=== PATIENT | female | born 1995 | race Caucasian/White ===

== ENCOUNTER 2019-03-19 00:12 | Emergency (ER) | payer MEDICAID ==
[2019-03-19 01:31] LABS: #Eosinphils 0.1 thou/uL (0.0-0.7); #Lymphocytes 2.8 thou/uL (1.20-3.40); #Monocytes 0.6 thou/uL (0.11-0.59); #Neutrophils 5.7 thou/uL (1.40-6.50); %Basophils 0.4 % (0.0-1.0); %Eosinophils 1.2 % (0.0-10.0); %Monocytes 6.6 % (0.0-10.0); %Neutrophils 61.8 % (42.0-75.0); Hemoglobin 13.6 g/dL (12.0-16.0); Mean Corpuscular HGB CONC 33.9 g/dL (32.0-36.0); Mean Corpuscular Hemoglobin 32.9 pg (27.0-31.0); Mean Platelet Volume 7.3 fL (7.4-10.4); Platelet Count 350 thou/uL (130-400); RBC Distribution Width 11.3 % (11.5-14.5); Red Blood Cell (RBC) Count 4.13 mill/uL (4.20-5.40); White Blood Cell (WBC) Count 9.3 thou/uL (4.8-10.8)
--- NOTE | 2019-03-19 07:41 | ULT ---
PRELIMINARY REPORT/[facility]/AFTER HOURS PROCEDURE EXAM: US First Trimester, Transabdominal and US , Transvaginal US Duplex Artery and Vein of the Abdominal and/or Reproductive Organs. Complete Ovaries EXAM DATE/TIME: 03/19/2019 1:42 AM CLINICAL HISTORY: 23 years old, female; Lmp or gestational age (in weeks): 5w1d; Antepartum complications; co mplicated by abdominal or pelvic pain; Lower; First trimester; ; Patient HX: Vaginal spotting earlier today, then heavier vaginal bleeding, pelvic cramping pain, nausea TECHNIQUE: Imaging protocol: Real-time transabdominal obstetrical ultrasound of the maternal pelvis and a first trimester , less than 14 weeks 0 days, with image documentation. Transvaginal imaging was used for better evaluation of the fetus and adnexa. Real-time duplex ultrasound scan of the arterial and venous flow with color Doppler flow and spectral waveform analysis with image documentat ion. Complete duplex exam focused on the ovaries. Duplex exam was added to evaluate for torsion and other vascular conditions. COMPARISON: No relevant prior studies available. FINDINGS: Transabdominal ultrasound showed possible intrauterine gestational sac. Transvaginal ultrasound was p erformed for evaluation of pole. Duplex ultrasound scan with color Doppler flow and spectral waveform analysis was also performed for evaluation of pelvic and ovarian blood flow and torsion. Gestation: There is an intrauterine gestational sac (MSD: 0.43cm-5w1d) with yolk sac. No pole seen yet. Placenta/amniotic fluid: Cannot be adequately evaluated due to the early gestational age. Uterus/cervix: No acute findings. No myometrial mass. Right adnexa: No acute findings. No mass. Normal duplex of the ovary. No evidence of torsion. Left adnexa: No acute findings. No mass. Normal duplex of the ovary. No evidence of torsion. Free fluid: No free fluid. IMPRESSION: There is an intrauterine gestational sac with yolk sac, although no pole seen yet; recommend followup with beta-hCG and ultrasound. Thank you for allowing us to participate in the care of your patient. Dictated and Authenticated by: Joey Phelan MD 03/19/2019 2:55 AM Central Time ([place] & [place]) FINAL REPORT TRANSABDOMINAL AND TRANSVAGINAL PELVIC ULTRASOUND WITH GRAYSCALE AND COLORFLOW AND SPECTRAL DOPPLER I MAGING: I agree with the report given by Dr. Joey Phelan of [facility]. CODE QA Transcribed Date/Time: 03/19/2019 8:20 AM
== END 2019-03-19 03:29 | disposition home or self-care (01) ==
LOC: ERS 00:12
DX: O20.9 Hemorrhage in early pregnancy, unspecified (principal); O99.341 Other mental disorders complicating pregnancy, first trimester; F41.9 Anxiety disorder, unspecified; Z3A.01 Less than 8 weeks gestation of pregnancy
CPT/HCPCS: 36415; 76856; 84702; 85025; 86900; 86901

== ENCOUNTER 2019-03-20 00:33 | Emergency (ER) | payer MEDICAID ==
[2019-03-20 01:12] LABS: #Basophils 0.1 thou/uL (0.0-0.2); #Eosinphils 0.1 thou/uL (0.0-0.7); #Lymphocytes 2.8 thou/uL (1.20-3.40); #Monocytes 0.6 thou/uL (0.11-0.59); #Neutrophils 4.3 thou/uL (1.40-6.50); %Basophils 1.3 % (0.0-1.0); %Eosinophils 1.6 % (0.0-10.0); %Lymphocytes 35.6 % (21.0-51.0); %Monocytes 7.2 % (0.0-10.0); %Neutrophils 54.4 % (42.0-75.0); Hemoglobin 13.4 g/dL (12.0-16.0); Mean Corpuscular HGB CONC 33.8 g/dL (32.0-36.0); Mean Corpuscular Volume 97.6 fL (78.0-98.0); Platelet Count 325 thou/uL (130-400); RBC Distribution Width 11.2 % (11.5-14.5); Red Blood Cell (RBC) Count 4.08 mill/uL (4.20-5.40); White Blood Cell (WBC) Count 7.9 thou/uL (4.8-10.8)
[2019-03-20 01:26] LABS: Bacteria/HPF None Seen HPF (None Seen); Bilirubin Negative (Negative); Blood, Urine 2+ (Negative); Clarity Clear (Clear); Glucose, Urine (Dipstick) Normal (Negative); Leukocyte Negative Leu/uL (Negative); Nitrite Negative (Negative); Protein, Urine (Dipstick) Negative (Neg-Trace); Squamous Epithelial 0-3 HPF (0-3); Urobilinogen Normal mg/dL (Less than 2); WBC/HPF 0-3 HPF (0-3)
[2019-03-20] MEDS ORDERED: Acetaminophen 500 MG TAB ONE (01:28)
[2019-03-20 01:43] LABS: HCG, Total Quant 1823.21 mIU/mL (See Ranges)
[2019-03-20 01:46] LABS: Thyroid Stimulating Hormone 1.6095 uIU/mL (0.35-4.94)
[2019-03-21 00:43] LABS: Chlamydia by PCR Not Detected (NotDetected); GC by PCR Not Detected (NotDetected)
== END 2019-03-20 02:09 | disposition home or self-care (01) ==
LOC: ERS 00:33
DX: O20.9 Hemorrhage in early pregnancy, unspecified (principal); Z3A.01 Less than 8 weeks gestation of pregnancy
CPT/HCPCS: 36415; 81003; 81015; 84443; 84702; 85025; 87480; 87491; 87510; 87591; 87660

== ENCOUNTER 2019-03-20 14:50 | Emergency (ER) | payer MEDICAID ==
[2019-03-20 15:32] LABS: #Basophils 0.1 thou/uL (0.0-0.2); #Eosinphils 0.1 thou/uL (0.0-0.7); #Lymphocytes 1.7 thou/uL (1.20-3.40); #Monocytes 0.5 thou/uL (0.11-0.59); #Neutrophils 5.4 thou/uL (1.40-6.50); %Basophils 0.8 % (0.0-1.0); %Lymphocytes 22.5 % (21.0-51.0); %Monocytes 6.1 % (0.0-10.0); %Neutrophils 69.5 % (42.0-75.0); Hemoglobin 13.5 g/dL (12.0-16.0); Mean Corpuscular HGB CONC 34.3 g/dL (32.0-36.0); Mean Corpuscular Hemoglobin 33.3 pg (27.0-31.0); Mean Corpuscular Volume 97.1 fL (78.0-98.0); Platelet Count 313 thou/uL (130-400); Red Blood Cell (RBC) Count 4.04 mill/uL (4.20-5.40); White Blood Cell (WBC) Count 7.7 thou/uL (4.8-10.8)
--- NOTE | 2019-03-20 17:48 | ULT ---
Ultrasound pelvis Doppler duplex: DATE: 03/20/2019 HISTORY: 23-year-old female with pelvic pain. Follow-up missed . Interval decrease in beta hCG. COMPARISON: 03/19/2019 FINDINGS: Previously demonstrated intrauterine gestational sac at the fundus is no longer visualized. A transva ginal ultrasound was not performed. Endometrial stripe is 0.5 cm. Bilateral ovaries are normal in size and have blood flow demonstrated by Doppler. No significant free fluid in the cul-de-sac. IMPRESSION: Intrauterine gestational sac no longer visualized. Status post spontaneous .
== END 2019-03-20 18:56 | disposition home or self-care (01) ==
LOC: ERS 14:50
DX: O03.9 Complete or unspecified spontaneous abortion without complication (principal); O86.13 Vaginitis following delivery; B96.89 Other specified bacterial agents as the cause of diseases classified elsewhere; F41.9 Anxiety disorder, unspecified
CPT/HCPCS: 36415; 76856; 81003; 81015; 84443; 84702; 85025; 87480; 87491; 87510; 87591; 87660; 99284

== ENCOUNTER 2019-08-03 12:19 | Emergency (ER) | payer MEDICAID, OTHER ==
[2019-08-03] MEDS ORDERED: Acetaminophen 500 MG TAB ONE (12:33)
== END 2019-08-03 14:26 | disposition home or self-care (01) ==
LOC: ERS 12:19
DX: O99.511 Diseases of the respiratory system complicating pregnancy, first trimester (principal); J10.1 Influenza due to other identified influenza virus with other respiratory manifestations; O99.341 Other mental disorders complicating pregnancy, first trimester; F41.9 Anxiety disorder, unspecified; Z3A.01 Less than 8 weeks gestation of pregnancy
CPT/HCPCS: 36415; 84702; 87804; 96360

== ENCOUNTER 2019-09-02 09:25 | Emergency (ER) | payer OTHER ==
[2019-09-02 10:32] LABS: #Basophils 0.1 thou/uL (0.0-0.2); #Eosinphils 0.4 thou/uL (0.0-0.7); #Lymphocytes 1.8 thou/uL (1.20-3.40); #Monocytes 0.5 thou/uL (0.11-0.59); #Neutrophils 5.4 thou/uL (1.40-6.50); %Basophils 1.4 % (0.0-1.0); %Eosinophils 4.7 % (0.0-10.0); %Lymphocytes 22.3 % (21.0-51.0); %Monocytes 6.2 % (0.0-10.0); %Neutrophils 65.4 % (42.0-75.0); Hemoglobin 12.7 g/dL (12.0-16.0); Mean Corpuscular HGB CONC 32.8 g/dL (32.0-36.0); Mean Corpuscular Volume 97.5 fL (78.0-98.0); Mean Platelet Volume 7.2 fL (7.4-10.4); Platelet Count 284 thou/uL (130-400); RBC Distribution Width 11.5 % (11.5-14.5); Red Blood Cell (RBC) Count 3.99 mill/uL (4.20-5.40); White Blood Cell (WBC) Count 8.2 thou/uL (4.8-10.8)
--- NOTE | 2019-09-02 11:31 | ULT ---
Exam: Transabdominal and endovaginal pelvic ultrasound HISTORY: patient. Pain. COMPARISON: None TECHNIQUE: Transabdominal and endovaginal imaging of the pelvis is performed. Ovaries are interrogate d with grayscale, color flow, Doppler imaging and spectral wave form analysis FINDINGS: Uterus: No myometrial masses. Uterus measurin.6 x 5.2 x 7.5 cm. Endometrium: There is a gestational sac, yolk sac and pole. [place]-rump length is 1.92 cm corres ponding to gestational age of 8 weeks 3 days. heart tones: 171 bpm Small subchorionic hemorrhage.. Free fluid: None Right ovary: Normal echotexture Right ovary measurement: 2.1 x 3.0 x 2.3 cm Left ovary: Normal echotexture. Left ovary measurements: 2.0 x 1.4 x 2.1 cm. Limited evaluation left adnexa due to bowel loops Ovarian Doppler: There is vascular flow to the left and right ovary. IMPRESSION: Single intrauterine gestation with heart tones. Gestational age by crown-rump length is 8 weeks 3 days. Transcribed Date/Time: 09/02/2019 12:04 PM
[2019-09-02 11:40] LABS: Bilirubin Negative (Negative); Blood, Urine Negative (Negative); Clarity Turbid (Clear); Glucose, Urine (Dipstick) Normal (Negative); Leukocyte 500 Leu/uL (Negative); Mucous/LPF Rare LPF (<2+); Nitrite Negative (Negative); Protein, Urine (Dipstick) 20 mg/dL (Neg-Trace); Urobilinogen Normal mg/dL (Less than 2)
[2019-09-02 11:49] LABS: RBC/HPF 0-3 HPF (0-3)
[2019-09-02 11:50] LABS: Bacteria/HPF 1+ HPF (None Seen)
== END 2019-09-02 11:59 | disposition home or self-care (01) ==
LOC: ERS 09:25
DX: O99.89 Other specified diseases and conditions complicating pregnancy, childbirth and the puerperium (principal); R10.2 Pelvic and perineal pain; O99.341 Other mental disorders complicating pregnancy, first trimester; F41.9 Anxiety disorder, unspecified; Z3A.08 8 weeks gestation of pregnancy
CPT/HCPCS: 36415; 76856; 81003; 81015; 84702; 85025; 87086

== ENCOUNTER 2019-10-04 05:54 | Emergency (ER) | payer MEDICAID, OTHER | END 2019-10-04 06:14 | disposition home or self-care (01) | LOC: ERS 05:54 | DX: O99.89 Other specified diseases and conditions complicating pregnancy, childbirth and the puerperium (principal); H66.92 Otitis media, unspecified, left ear; O99.342 Other mental disorders complicating pregnancy, second trimester; F41.9 Anxiety disorder, unspecified; Z3A.15 15 weeks gestation of pregnancy | CPT/HCPCS: 99283 ==

== ENCOUNTER 2020-02-07 15:02 | Day surgery (SDC) | payer OTHER ==
[2020-02-07 15:32] VITALS: BMI 32.6
[2020-02-07] MEDS ORDERED: hydrALAZINE 20 MG/ML VIAL SLOW IVP PRN (16:11)
--- NOTE | 2020-02-07 16:17 | PDOC.LDHP ---
Labor and Delivery H&P Chief complaint: other (vaginal spotting with low back pain and cramping.) HPI: 24 y/o @ 30.6 wks presents to L&D with X2 days low abd cramping, vag spotting and vaginal pain. Pt states she started to have some spotting with mucus vag d/c about dime size today before arrival. Pt denies any dysuria, blood in urine, frequency or hesitation. c/o nausea, with one episode of vomiting X2 days ago that did not persist. denies fever/chills. Denies LOF. Reports good movements. admits to few contractions that are random. c/o HARP that started 3 days ago that went away when she hydrated spontaneously. Pt is concerned she has BV, as this is how she presented last year with BV. Denies sexual intercourse recently, last 1.5 months ago. PCP: Dr. Dahl Current gestational age (weeks): 30 (6 days ) Grav: 3 Para: 0 OB History Details: #1: spon ab @ 5.5 weeks #2: spon ab @ 4 weeks Current complications: none Past Medical History: no known medical problems Current medications: pre-loida vitamins Previous surgical history: none Allergies/Adverse Reactions: Allergies Allergy/AdvReac Type Severity Reaction Status Date / Time No Known Allergies Allergy Verified 02/07/20 15:32 Social history: none (denies etoh, tobacco or drugs) - Physical Exam Vital signs reviewed and normal: yes General: NAD Heart: RRR Lungs: CTAB Abdomen: gravid Extremeties: no edema FHT: variability present (135 fht's, mod variability, with accels present) Petronila contractions every: non on TOCO - Vaginal Exam cm dilated: 0 Effacement: 50% - Plan Plan: observation in L&D -: 24 y/o @ 30.6 weeks presents to L&D for low back pain with vag spotting , discharge and pain. 1. sIUP @ 30.6 weeks - no ctx on toco, FHT 135 with mod lillian and accels present. - no concern for labor as no ctx on toco and SVE by Dr. Riley: closed/ 50%/posterior 2. vaginal spotting, d/c with vaginal pain - spec exam: cervicitis present with strawberry appearing cervix. Thick yellow tinged d/c. - VP3, Gc/C collected 3. Cervicitis - DDX: BV vs trich - VP3 and GC/C collected - will treat pending swab results Dispo: stable, will observe in L&D and await results. PO hydration. Care plan discussed with Dr. Riley, who is in agreement with above stated plan. Addendum - Attending - Attending Attestation Date/Time: 02/07/202103 I personally evaluated the patient and discussed the management with Dr. Luz. I agree with the History, Examination, Assessment and Plan documented above.
--- NOTE | 2020-02-07 18:10 | PDOC.BPN ---
<Mounika Luz - Last Filed: 02/07/20 18:05> - Brief Progress Note VP3 neg GC/C pending no contractions on toco, and FHT 135 baseline with reassuring strip. SVE by Dr. Riley: closed/50%/posterior Pt d/c home with modified bed-rest for the rest of the weekend and pelvic rest recommended for the entirety of . Pt understands recs. return precaution given. f/u with Dr. Dahl for care. care plan discussed with Dr. Riley who is in agreement with above states plan. <Bran Riley - Last Filed: 02/07/20 18:18> Addendum - Attending - Attending Attestation Date/Time: 02/07/201814 I personally evaluated the patient and discussed the management with Dr. Luz. 30 + week IUP with spotting and occasional cramping. SSE c/w ectropion. Vaginal panel negative. GC, chlamydia pending. SVE closed/50% /post, npo blood seen. NO UCs noted on toco. Home with precautions, has appt. with Dr. Dahl this week. I agree with the History, Examination, Assessment and Plan documented above.
[2020-02-08 17:30] LABS: Chlamydia by PCR Not Detected (NotDetected); GC by PCR Not Detected (NotDetected)
== END 2020-02-07 18:15 | disposition home or self-care (01) ==
LOC: L&D/OP 15:02
PROVIDERS: ATTEND Obstetrics & Gynecology
DX: O26.853 Spotting complicating pregnancy, third trimester (principal); O23.519 Infections of cervix in pregnancy, unspecified trimester; B96.89 Other specified bacterial agents as the cause of diseases classified elsewhere; O99.89 Other specified diseases and conditions complicating pregnancy, childbirth and the puerperium; M54.5 Low back pain; R10.2 Pelvic and perineal pain; Z3A.30 30 weeks gestation of pregnancy
CPT/HCPCS: 87480; 87491; 87510; 87591; 87660

== ENCOUNTER 2020-03-26 17:40 | Inpatient (IN) | payer OTHER ==
[~2020-03-26 17:40] MED LIST: Bupivacaine/Epinephrine 0.25% 30 ML VIAL ONE; Lidocaine 2% MPF 10 ML AMP (For Epidural Use) ONE
[2020-03-26 18:13] VITALS: BMI 35.5
[2020-03-26] MEDS ORDERED: hydrALAZINE 20 MG/ML VIAL SLOW IVP PRN (22:27)
[2020-03-26] MEDS ORDERED: Carboprost 250 MCG/ML AMP IM PRN (22:27)
[2020-03-26] MEDS ORDERED: Acetaminophen 500 MG TAB PO PRN (22:27)
[2020-03-26] MEDS ORDERED: Promethazine HCl 25 MG/ML VIAL IM PRN (22:27)
[2020-03-26] MEDS ORDERED: Ibuprofen 800 MG TAB PO PRN (22:27)
[2020-03-26] MEDS ORDERED: NS / Oxytocin 40 units/1000ml 1,000 ML IV PRN (22:27)
[2020-03-26] MEDS ORDERED: Butorphanol Tartrate 1 MG/ML VIAL SLOW IVP PRN (22:27)
[2020-03-26] MEDS ORDERED: Misoprostol 200 MCG TAB PR PRN (22:27)
[2020-03-26] MEDS ORDERED: Diphenoxylate HCl/Atropine Tablet PO PRN (22:27)
[2020-03-26] MEDS ORDERED: Ondansetron PF 4 MG/2 ML Vial IVP PRN (22:27)
[2020-03-26] MEDS ORDERED: Lidocaine 1% (PF) 30 ML VIAL SC PRN (22:27)
[2020-03-26] MEDS ORDERED: Methylergonovine 0.2 MG/ML VIAL IM PRN (22:27)
[2020-03-26] MEDS ORDERED: HYDROcodone/Acetaminophen 5/325 mg Tablet PO PRN (22:27)
[2020-03-26] MEDS ORDERED: NS w/ Oxytocin 10 units 500 ML IV SCH (22:30)
--- NOTE | 2020-03-26 22:30 | PDOC.LDHP ---
Labor and Delivery H&P Chief complaint: contractions HPI: 24yo at 37w5d by LMP here with painful ctx since 1600, now increased in intensity and frequency. No LOF VB. Current gestational age (weeks): 37 Due date: 04/11/20 Dating criteria: last menstrual period Grav: 1 Para: 0 Current complications: none Abnormal US findings: No Past Medical History: denies Current medications: pre-loida vitamins Previous surgical history: none Allergies/Adverse Reactions: Allergies Allergy/AdvReac Type Severity Reaction Status Date / Time No Known Allergies Allergy Verified 03/26/20 18:10 Social history: none - Physical Exam Vital signs reviewed and normal: yes General: breathing through contractions Heart: RRR Lungs: CTAB Abdomen: gravid Extremeties: no edema FHT: category 1 Bee contractions every: 3-5min - Vaginal Exam cm dilated: 4 Effacement: 75% Station: -1 - OB Labs Blood type: A RH: positive Antibody Screen: negative HIV: negative RPR: negative HEPSAg: negative 1 hour GCT: negative GBS: negative Urine drug screen: negative Rubella: immune - Assessment L&D Assessment: term patient in labor - Plan Plan: admit to L&D, labor augmentation if indicated, informed consent obtained, anesthesia consult for pain management
[2020-03-26 23:02] LABS: Hemoglobin 10.5 g/dL (12.0-16.0); Mean Corpuscular HGB CONC 33.5 g/dL (32.0-36.0); Mean Corpuscular Hemoglobin 29.4 pg (27.0-31.0); Mean Corpuscular Volume 87.8 fL (78.0-98.0); Mean Platelet Volume 8.6 fL (7.4-10.4); Platelet Count 353 thou/uL (130-400); RBC Distribution Width 13.3 % (11.5-14.5); Red Blood Cell (RBC) Count 3.57 mill/uL (4.20-5.40); White Blood Cell (WBC) Count 13.3 thou/uL (4.8-10.8)
[2020-03-26 23:35] LABS: Hep B Surf Ag Non-Reactive S/CO (NonReactive); Syphilis Antibody Nonreactive (Nonreactive); Syphilis Antibody Index 0.04 S/CO (<1.00 Non-Reactive)
[2020-03-27] MEDS ORDERED: Fentanyl 4 mcg/Bup 0.1% Cadd 100 ML ONE ×2 (00:21→07:09)
[2020-03-27] MEDS ORDERED: Lactated Ringer's 500 ML IV PRN (00:58)
[2020-03-27] MEDS ORDERED: diphenhydrAMINE 50 MG/ML VIAL IVP PRN (00:58)
[2020-03-27] MEDS ORDERED: Naloxone HCl 0.4 mg/ml Vial IVP PRN ×2 (00:58)
[2020-03-27] MEDS ORDERED: EPHEDRINE 25 MG/5 ML SYRINGE SLOW IVP PRN (00:58)
[2020-03-27] MEDS ORDERED: Promethazine HCl 25 MG/ML VIAL IM PRN (00:58)
[2020-03-27] MEDS ORDERED: Ondansetron PF 4 MG/2 ML Vial IVP PRN (00:58)
[2020-03-27] MEDS ORDERED: Communication Order-Pharmacy FS SCH (01:00)
[2020-03-27] MEDS ORDERED: Fentanyl 4 mcg/Bupivacaine 0.1% Cassette 100 ML EPIDURAL SCH (01:00)
[2020-03-27] MEDS: Lactated Ringer's 1,000 ML IV SCH ×3 (01:43→08:58)
[2020-03-27] MEDS ORDERED: Lidocaine 1.5%/Epinephrine 1:200,000 5 ML AMPUL IJ ONE (07:22)
[2020-03-27] MEDS ORDERED: NS / Oxytocin 40 units/1000ml 1,000 ML ONE (11:04)
[2020-03-27] MEDS ORDERED: Lidocaine 1% (PF) 30 ML VIAL ONE (11:04)
[2020-03-27 12:38] LABS: SARS-CoV-2 MS2 Positive; SARS-CoV-2 N Gene Negative; SARS-CoV-2 S Gene Negative; SARS-CoV-2 by NAA Not Detected (NotDetected); SARS-CoV-2 orf1ab Negative
[2020-03-27] MEDS ORDERED: Butorphanol Tartrate 1 MG/ML VIAL SLOW IVP SCH (14:50)
[2020-03-27] MEDS: Butorphanol Tartrate 1 MG/ML VIAL ONE ×2 (14:56→14:57)
[2020-03-27] MEDS ORDERED: Lanolin Ointment 7 GM TUBE TOP PRN (15:09)
[2020-03-27] MEDS ORDERED: Milk Of Magnesia 30 ML UDCUP PO PRN (15:09)
[2020-03-27] MEDS ORDERED: diphenhydrAMINE 25 MG CAP PO PRN (15:09)
[2020-03-27] MEDS ORDERED: Preparation H Ointment 28 GM TUBE PR PRN (15:09)
[2020-03-27] MEDS ORDERED: Benzocaine-Menthol 82.5 ML CAN TOP PRN (15:09)
[2020-03-27] MEDS ORDERED: Bisacodyl 10 MG SUPP PR PRN (15:09)
[2020-03-27] MEDS ORDERED: Adacel (T-DAP) 0.5 ML SYRINGE IM ONE (15:09)
[2020-03-27] MEDS ORDERED: hydrALAZINE 20 MG/ML VIAL SLOW IVP PRN (15:09)
[2020-03-27] MEDS ORDERED: NS / Oxytocin 40 units/1000ml 1,000 ML IV SCH (15:15)
--- NOTE | 2020-03-27 15:35 | PDOC.OPDEL ---
OB Operative/Delivery Note Delivery Dr/Surgeon: Ildefonso Aguila Pre-Delivery Diagnosis: active labor Procedure/Post Delivery Dx: spontaneous vaginal delivery Weeks gestation: 37 (37.6) Anesthesia: epidural - Findings A Sex: male - 1 min: 9 - 5 min: 9 - Additional Findings/Plan Placenta delivered: spontaneous Repaired Obstetrical Laceration: 2nd degree (with right labial abrasion) Estimated blood loss: 350 Compilations/Other Findings: Pre-Op Diagnosis: 1. Term intrauterine in labor Post-op Diagnosis: 1. Term intrauterine , delivered 2. Chorioamnioitis 3. 2nd degree laceration 4. Right labial abrasion Indications: A 24yo @ 37.6wks presented in active labor. Delivery Note: This is a 24yo @ 37.6wks who delivered a viable M at 1443 on with a weight of 7lbs 4oz. Antepartum course complicated by tachycardia during active pushing as well as fever of 101 immediately . A vigorous male infant was delivered over an intact perineum in the occiputanterior position. Anterior shoulder and then remainder of the body delivered. No nuchal cord. Cord was noted to be very short. Head was held down and mouth and nares bulb suctioned. Cord clamped and cut and cord blood collected. Baby was placed on mom's chest. Placenta delivered intact with a 3 vessel cord noted. Fundal massage was performed and the fundus was initially boggy. Bimanual exam with removal of large clots. Fundus then noted to be firm after pitocin given. The vagina was then inspected for lacerations and a 2nd degree laceration was noted and repaired in the usual and sterile fashion using a 2-0 vicryl suture with adequate hemostatis noted after a local anesthetic of 1 % lidocaine was used. A right labial abrasion was noted to be hemostatic and not needing repair. Infant was placed on mother for skin to skin time in good condition after being examined by nursery nurse. Apgars were 9/9 at 1 &5 min respectively. Patient tolerated delivery well and will be transferred to in good condition. QBL: 350cc Post delivery plan: routine recovery Addendum - Attending - Attending Attestation Date/Time: 03/27/20 I was present and scrubbed for the entire delivery and repair. -Palak
[2020-03-27] MEDS: Ibuprofen 800 MG TAB PO SCH (17:12)
[2020-03-27] MEDS: Acetaminophen 325 MG TAB PO PRN (19:32)
[2020-03-27] MEDS ORDERED: HYDROcodone/Acetaminophen 5/325 mg Tablet PO SCH (21:30)
[2020-03-28] MEDS: Ibuprofen 800 MG TAB PO SCH ×3 (00:55→17:42)
[2020-03-28] MEDS: Docusate Calcium (SURFAK) 240 MG CAP PO SCH ×3 (00:56→21:58)
--- NOTE | 2020-03-28 07:18 | PDOC.PP ---
Post Progress Note Post Day #: 1 Subjective: Doing well this morning, no acute events overnight. Tolerating PO without n/v. Voiding without difficulty, flatus. Pain controlled with PO meds. Lochia moderate. Denies any CP, SOB, fever/chills, n/v. Does endorse mild gas pain/ bloating. going well. PO intake tolerated: yes Flatus: yes Ambulation: yes Vital Signs (12 hours) Temp Pulse Resp BP 03/28/20 06:16 98.1 F 96 14 104/57 L 03/28/20 01:01 98.0 F 106 H 14 102/55 L 03/27/20 20:49 98.1 F 95 14 138/79 Weight Weight 85.275 kg - Physical Examination General: NAD (resting comfortably, good spirits) Cardiovascular: no m/r/g, RRR Respiratory: clear to auscultation bilaterally Abdominal: + bowel sounds, appropriately TTP Fundus firm & at: below umbilicus Extremities: negative homans (B) Psychiatric: A&Ox3, normal affect Result Diagrams: 03/26/20 22:46 Additional Labs: Post Labs Blood Type A POSITIVE 03/26/20 22:46 Hep Bs Antigen Non-Reactive S/CO (NonReactive) 03/26/20 22:46 (1) care following vaginal delivery Code(s): Z39.2 - ENCOUNTER FOR ROUTINE FOLLOW-UP Status: Acute - Assessment/Plan 24yo now [id number] who delivered a viable M @ 37.6wks at 1443 on 03/27 now PPD #1 #PPD#1 s/p - Doing well, no concerns - QBL 590 - Gas pain, will add simethicone prn - Tolerating PO, voiding, flatus, pain controlled - Encourage ambulation and - Routine care - anticipate discharge tomorrow pending clinical course Dispo: Routine PP care. Anticipate discharge tomorrow.
[2020-03-28] MEDS: Ferrous Sulfate 325 MG TAB PO SCH (08:28)
[2020-03-28] MEDS: Prenatal Vitamin 1 TAB PO SCH (08:36)
[2020-03-28] MEDS: Acetaminophen 325 MG TAB PO PRN ×3 (08:36→17:42)
[2020-03-28] MEDS: Simethicone Chewable 80 MG TAB PO PRN ×2 (09:38→17:42)
[2020-03-29] MEDS: Ibuprofen 800 MG TAB PO SCH ×3 (01:05→17:13)
--- NOTE | 2020-03-29 06:57 | PDOC.PP ---
Post Progress Note Post Day #: 2 PO intake tolerated: yes Flatus: yes Ambulation: yes Vital Signs (12 hours) Temp Pulse Resp BP Pulse Ox 03/29/20 01:00 99.4 F 100 16 106/55 L 96 03/28/20 19:45 98.7 F 108 H 20 101/59 L 98 Weight Weight 188 lb - Physical Examination General: NAD Cardiovascular: no m/r/g, RRR Respiratory: clear to auscultation bilaterally Abdominal: + bowel sounds, lochia Extremities: negative homans (B) Neurological: no gross focal deficits Psychiatric: A&Ox3, normal affect Result Diagrams: 03/26/20 22:46 Additional Labs: Post Labs Blood Type A POSITIVE 03/26/20 22:46 Hep Bs Antigen Non-Reactive S/CO (NonReactive) 03/26/20 22:46 - Assessment/Plan doing well home in pm
[2020-03-29 08:30] VITALS: BP 104/52; TEMP 98.7
[2020-03-29] MEDS: Prenatal Vitamin 1 TAB PO SCH (08:31)
[2020-03-29] MEDS: Ferrous Sulfate 325 MG TAB PO SCH (08:31)
[2020-03-29] MEDS: Docusate Calcium (SURFAK) 240 MG CAP PO SCH (08:31)
[2020-03-29] MEDS ORDERED: Boostrix 0.5 ML VIAL IM ONE (13:30)
== END 2020-03-29 17:45 | disposition home or self-care (01) | DRG 807 ==
LOC: L&D/OP 17:40 → L&D 22:27 → 3SW 03-27 18:33
PROVIDERS: ADMIT Student in an Organized Health Care Education/Training Program; ATTEND Student in an Organized Health Care Education/Training Program
PROC: 10E0XZZ Delivery of Products of Conception, External Approach (ICD-10-PCS; principal; 2020-03-27)
PROC: 0KQM0ZZ Repair Perineum Muscle, Open Approach (ICD-10-PCS; 2020-03-27)
DX: O41.1230 Chorioamnionitis, third trimester, not applicable or unspecified (principal); Z37.0 Single live birth; O70.1 Second degree perineal laceration during delivery; Z3A.37 37 weeks gestation of pregnancy
CPT/HCPCS: 36415; 51702; 85027; 86780; 86850; 86900; 86901; 87340; 87635; 90715; 99285; J0595; J2001; J2405; J2590; J3490; U0003

== ENCOUNTER 2021-02-19 11:36 | Emergency (ER) | payer OTHER ==
[2021-02-19 12:49] LABS: #Eosinphils 0.1 thou/uL (0.0-0.7); #Lymphocytes 2.2 thou/uL (1.20-3.40); #Monocytes 0.4 thou/uL (0.11-0.59); #Neutrophils 5.2 thou/uL (1.40-6.50); %Basophils 0.1 % (0.0-1.0); %Eosinophils 1.2 % (0.0-10.0); %Lymphocytes 27.5 % (21.0-51.0); %Monocytes 5.5 % (0.0-10.0); %Neutrophils 65.6 % (42.0-75.0); Hemoglobin 13.6 g/dL (12.0-16.0); Mean Corpuscular HGB CONC 33.7 g/dL (32.0-36.0); Mean Corpuscular Hemoglobin 32.8 pg (27.0-31.0); Mean Corpuscular Volume 97.3 fL (78.0-98.0); Mean Platelet Volume 7.2 fL (7.4-10.4); Platelet Count 291 thou/uL (130-400); RBC Distribution Width 11.5 % (11.5-14.5); Red Blood Cell (RBC) Count 4.15 mill/uL (4.20-5.40); White Blood Cell (WBC) Count 7.9 thou/uL (4.8-10.8)
[2021-02-19 13:14] LABS: ALT (SGPT) 12 U/L (8-55); AST (SGOT) 16 U/L (5-34); Alkaline Phosphatase 69 U/L (40-110); Anion Gap 9 mmol/L (10-20); BUN (Urea Nitrogen) 8 mg/dL (7.0-18.7); Bilirubin, Total 0.3 mg/dL (0.2-1.2); Calc. Creatinine Clearance 0 mL/min (70-130); Calcium 8.8 mg/dL (7.8-10.44); Carbon Dioxide 28 mmol/L (22-29); Chloride 106 mmol/L (98-107); Globulin 3.4 g/dL (2.4-3.5); Glucose 94 mg/dL (70-105); Lipase 23 U/L (8-78); Potassium 4.2 mmol/L (3.5-5.1); Protein, Total 7.4 g/dL (6.0-8.3); Sodium 139 mmol/L (136-145)
[2021-02-19 14:01] LABS: Pregnancy Test - Urine (BHCG) POSITIVE (Negative); Pregu Control Background? CLEAR/WHITE (CLR/WHITE); Pregu Control Bar Appear? YES (CONTROL BAR)
[2021-02-19 14:02] LABS: Bilirubin Negative (Negative); Blood, Urine Negative (Negative); Clarity Clear (Clear); Glucose, Urine (Dipstick) Normal (Negative); Ketone, Urine Negative (Negative); Leukocyte 75 Leu/uL (Negative); Nitrite Negative (Negative); Protein, Urine (Dipstick) Negative (Neg-Trace); RBC/HPF 0-3 HPF (0-3); Specific Gravity 1.013 (1.002-1.036); Specific Gravity, Urine 1.013 (1.002-1.036); Urobilinogen Normal mg/dL (Less than 2); WBC/HPF 0-3 HPF (0-3); pH, Urine 5.5 (5.0-9.0)
[2021-02-19 14:03] LABS: Bacteria/HPF 1+ HPF (None Seen)
== END 2021-02-19 15:56 | disposition home or self-care (01) ==
LOC: ERS 11:36
DX: O99.891 Other specified diseases and conditions complicating pregnancy (principal); R10.9 Unspecified abdominal pain; Z3A.01 Less than 8 weeks gestation of pregnancy
CPT/HCPCS: 36415; 76856; 80053; 81003; 81015; 81025; 83690; 84702; 85025; 93976